=== PATIENT | male | born 1940 | race Caucasian/White ===

== ENCOUNTER 2022-03-14 08:57 | Inpatient (IN) | payer OTHER ==
[~2022-03-14] VITALS: Ht 180.3 cm; Wt 82.6 kg
[2022-03-14 09:20] VITALS: BP_SYST 191
[2022-03-14 09:55] LABS: ANION GAP 8 (5-15); CHLORIDE 104 mmol/L (98-107); CREATININE 1.83 mg/dL (0.55-1.30); GLUCOSE 132 mg/dL (70-99); POTASSIUM 3.9 mmol/L (3.5-5.1); SODIUM SERUM 137 mmol/L (136-145); UREA NITROGEN, BLOOD 28 mg/dL (8-21)
[2022-03-14 09:57] LABS: BASOPHILS % (AUTO) 0.7 % (0.0-2.0); EOSINOPHILS # (AUTO) 0.1 K/uL (0.0-0.4); EOSINOPHILS % (AUTO) 0.9 % (0.0-4.0); HEMATOCRIT 32.6 % (36-54); HEMOGLOBIN 11.2 g/dL (14.0-18.0); LYMPHOCYTES # (AUTO) 0.8 K/uL (1.0-5.5); LYMPHOCYTES % (AUTO) 13.7 % (20.5-51.5); MEAN CORPUSCULAR HEMOGLOBIN 32 pg (27-31); MEAN CORPUSCULAR HGB CONC 34 % (32-36); MEAN CORPUSCULAR VOLUME 93 fL (79.0-98.0); MONOCYTES # (AUTO) 0.7 K/uL (0.0-1.0); MONOCYTES % (AUTO) 11.1 % (1.7-9.3); NEUTROPHILS # (AUTO) 4.4 K/uL (1.8-7.7); NEUTROPHILS % (AUTO) 73.6 % (40.0-70.0); PLATELET COUNT (AUTO) 192 K/uL (130-430); RED BLOOD CELL COUNT(AUTO) 3.52 MIL/uL (4.2-6.2); RED CELL DISTRIBUTION WIDTH 12.7 % (9.0-15.0)
[2022-03-14 09:59] LABS: ALANINE AMINOTRANSFERASE 22 U/L (12-78); ALBUMIN 3.4 g/dL (3.4-4.8); ASPARTATE AMINOTRANSFERASE 31 U/L (10-37); TOTAL BILIRUBIN 0.4 mg/dL (0.0-1.0)
[2022-03-14] MEDS ORDERED: POTASSIUM CHLORIDE 20 MEQ TAB.PRT.SR PO PRN (12:15)
[2022-03-14] MEDS ORDERED: MAGNESIUM SULFATE 50 ML IV PRN (12:15)
[2022-03-14] MEDS ORDERED: ONDANSETRON HCL 4 MG/2 ML VIAL IVP PRN (12:15)
[2022-03-14] MEDS ORDERED: LORazepam 2 MG/ML VIAL IVP PRN (12:15)
[2022-03-14] MEDS ORDERED: MORPHINE 2 MG/ML INJ. SYRINGE IVP PRN ×2 (12:15)
[2022-03-14] MEDS ORDERED: MUPIROCIN 2% TOPICAL OINTMENT 22 GM NS PRN (12:15)
[2022-03-14] MEDS ORDERED: DOCUSATE SODIUM 100 MG CAPSULE PO PRN (12:15)
[2022-03-14] MEDS ORDERED: ZOLPIDEM TARTRATE 5 MG TABLET PO PRN (12:15)
[2022-03-14] MEDS ORDERED: LORazepam 1 MG TABLET PO PRN (12:30)
[2022-03-14] MEDS ORDERED: ACETAMINOPHEN 325 MG TABLET PO PRN (12:30)
[2022-03-14] MEDS ORDERED: amLODIPine BESYLATE 10 MG TABLET PO ONE (12:30)
[2022-03-14] MEDS ORDERED: PIOG30TA71 PO (12:50)
[2022-03-14] MEDS ORDERED: AMLO5TAB4 PO (12:50)
[2022-03-14] MEDS ORDERED: LINA5TAB2 PO (12:50)
[2022-03-14] MEDS ORDERED: SERT25TA PO (12:50)
[2022-03-14] MEDS ORDERED: LOSA25TA3 PO (12:50)
[2022-03-14] MEDS ORDERED: ROSU20TA2 PO (12:50)
[2022-03-14] MEDS ORDERED: FENO160 PO (12:50)
[2022-03-14] MEDS ORDERED: SYN75 PO (12:50)
[2022-03-14] MEDS: NACL 0.9% 1,000 ML IV SCH (14:26)
[2022-03-14 14:50] VITALS: BP_SYST 155
[2022-03-14 16:01] VITALS: BP_SYST 153
[2022-03-14 20:00] VITALS: BP_SYST 150
[2022-03-14] MEDS: ACETAMINOPHEN 325 MG TABLET PO PRN (21:05)
[2022-03-14] MEDS: HEPARIN SODIUM,PORCINE 5,000 UNITS/ML VIAL SUBCUT SCH (21:14)
[2022-03-15 01:06] VITALS: BP_SYST 136
[2022-03-15] MEDS: NACL 0.9% 1,000 ML IV SCH ×2 (01:36→13:15)
[2022-03-15 07:27] LABS: BASOPHILS % (AUTO) 0.4 % (0.0-2.0); EOSINOPHILS % (AUTO) 0.6 % (0.0-4.0); HEMATOCRIT 29.1 % (36-54); HEMOGLOBIN 10.1 g/dL (14.0-18.0); LYMPHOCYTES # (AUTO) 0.9 K/uL (1.0-5.5); LYMPHOCYTES % (AUTO) 13.2 % (20.5-51.5); MEAN CORPUSCULAR HEMOGLOBIN 32 pg (27-31); MEAN CORPUSCULAR HGB CONC 35 % (32-36); MEAN CORPUSCULAR VOLUME 92 fL (79.0-98.0); MONOCYTES # (AUTO) 0.8 K/uL (0.0-1.0); MONOCYTES % (AUTO) 11.6 % (1.7-9.3); NEUTROPHILS # (AUTO) 5.3 K/uL (1.8-7.7); NEUTROPHILS % (AUTO) 74.2 % (40.0-70.0); PLATELET COUNT (AUTO) 183 K/uL (130-430); RED BLOOD CELL COUNT(AUTO) 3.17 MIL/uL (4.2-6.2); RED CELL DISTRIBUTION WIDTH 12.8 % (9.0-15.0); WHITE BLOOD COUNT (AUTO) 7.1 K/uL (4.8-10.8)
[2022-03-15 08:00] VITALS: BP_SYST 152
[2022-03-15 08:03] LABS: ANION GAP 5 (5-15); CALCIUM 8.4 mg/dL (8.4-11.0); CHLORIDE 107 mmol/L (98-107); CREATININE 1.74 mg/dL (0.55-1.30); GLUCOSE 112 mg/dL (70-99); SODIUM SERUM 139 mmol/L (136-145); UREA NITROGEN, BLOOD 27 mg/dL (8-21)
[2022-03-15] MEDS ORDERED: DEXTROSE 50% JECT 50 ML DISP.SYRIN IVP PRN (08:30)
[2022-03-15] MEDS ORDERED: MUPIROCIN 2% TOPICAL OINTMENT 22 GM NS PRN (08:30)
[2022-03-15] MEDS ORDERED: NALOXONE HCL 0.4 MG/ML AMP (NARCAN) IVP PRN ×3 (08:30)
[2022-03-15] MEDS ORDERED: HYDROcodone/ACETAMIN 5-325 MG TAB (NORCO/ VICODIN) PO PRN (08:30)
[2022-03-15] MEDS ORDERED: POTASSIUM CHLORIDE 20 MEQ TAB.PRT.SR PO PRN (08:30)
[2022-03-15] MEDS ORDERED: MAGNESIUM SULFATE 50 ML IV PRN (08:30)
[2022-03-15] MEDS ORDERED: ZOLPIDEM TARTRATE 5 MG TABLET PO PRN (08:30)
[2022-03-15] MEDS ORDERED: LORazepam 2 MG/ML VIAL IVP PRN (08:30)
[2022-03-15] MEDS ORDERED: IBUPROFEN 400 MG TABLET PO ONE (08:30)
[2022-03-15] MEDS ORDERED: ACETAMINOPHEN 325 MG TABLET PO PRN (08:30)
[2022-03-15] MEDS ORDERED: DOCUSATE SODIUM 100 MG CAPSULE PO PRN (08:30)
[2022-03-15] MEDS ORDERED: ONDANSETRON HCL 4 MG/2 ML VIAL IVP PRN (08:30)
[2022-03-15] MEDS ORDERED: amLODIPine BESYLATE 5 MG TABLET PO ONE (09:00)
[2022-03-15] MEDS ORDERED: ATORVASTATIN 20 MG TABLET PO SCH (09:00)
[2022-03-15] MEDS: FENOFIBRATE 145 MG TABLET PO SCH (09:00)
[2022-03-15] MEDS ORDERED: SERTRALINE HCL 50 MG TABLET PO ONE (09:00)
[2022-03-15] MEDS ORDERED: amLODIPine BESYLATE 10 MG TABLET PO SCH (09:00)
[2022-03-15] MEDS ORDERED: LOSARTAN POTASSIUM 25 MG TABLET PO ONE (09:00)
[2022-03-15] MEDS: ATORVASTATIN 20 MG TABLET PO ONE ×2 (09:00→10:11)
[2022-03-15] MEDS: HEPARIN SODIUM,PORCINE 5,000 UNITS/ML VIAL SUBCUT SCH ×2 (10:15→20:12)
[2022-03-15] MEDS: INSULIN LISPRO SLIDING SCALE 100 UNITS/ML VIAL (humaLOG) SUBCUT PRN ×3 (10:22→20:23)
[2022-03-15 11:34] VITALS: BP_SYST 148
[2022-03-15 15:27] VITALS: BP_SYST 153
[2022-03-15 20:05] VITALS: BP_SYST 159
[2022-03-15] MEDS: ACETAMINOPHEN 325 MG TABLET PO PRN (20:08)
[2022-03-15 21:46] LABS: BILIRUBIN,URINE NEGATIVE (NEGATIVE); CLARITY/URINE CLEAR (CLEAR); COLOR,URINE YELLOW (YELLOW); GLUCOSE,URINE TRACE (NEGATIVE); KETONES,URINE NEGATIVE (NEGATIVE); LEUKOCYTE ESTERASE ,URINE NEGATIVE (NEGATIVE); NITRITE, URINE NEGATIVE (NEGATIVE); PH,URINE 5.5 (5.0-8.0); PROTEIN URINE TRACE (NEGATIVE); UROBILINOGEN,URINE 0.2 (0.2-1.0)
[2022-03-15 21:58] LABS: BLOOD, URINE TRACE (NEGATIVE)
[2022-03-15 22:00] LABS: BACTERIA,URINE None Seen /HPF (None Seen); MUCUS,URINE None Seen /LPF (None Seen); RBC,URINE 0-3 /HPF (0-3); WBC,URINE NONE SEEN /HPF (0-3)
[2022-03-16] VITALS: BP_SYST 137
[2022-03-16] MEDS: NACL 0.9% 1,000 ML IV SCH ×2 (00:41→11:59)
[2022-03-16] MEDS: LEVOTHYROXINE SODIUM 0.075 MG TABLET PO SCH (06:33)
[2022-03-16 07:38] LABS: ANION GAP 8 (5-15); CALCIUM 8.5 mg/dL (8.4-11.0); CHLORIDE 105 mmol/L (98-107); CREATININE 1.48 mg/dL (0.55-1.30); GLUCOSE 112 mg/dL (70-99); SODIUM SERUM 138 mmol/L (136-145); UREA NITROGEN, BLOOD 21 mg/dL (8-21)
[2022-03-16 08:00] VITALS: BP_SYST 162
[2022-03-16] MEDS: ACETAMINOPHEN 325 MG TABLET PO PRN (08:45)
[2022-03-16] MEDS: ATORVASTATIN 20 MG TABLET PO SCH (08:47)
[2022-03-16] MEDS: SERTRALINE HCL 50 MG TABLET PO SCH (08:48)
[2022-03-16] MEDS: LOSARTAN POTASSIUM 25 MG TABLET PO SCH (08:48)
[2022-03-16] MEDS: amLODIPine BESYLATE 5 MG TABLET PO SCH (08:52)
[2022-03-16] MEDS: HEPARIN SODIUM,PORCINE 5,000 UNITS/ML VIAL SUBCUT SCH ×2 (08:56→21:22)
[2022-03-16] MEDS: FENOFIBRATE 145 MG TABLET PO SCH (09:00)
[2022-03-16 09:14] LABS: TRIGLYCERIDES 228 mg/dL (30-150)
[2022-03-16 09:15] LABS: CHOLESTEROL 146 mg/dL (<200); HDL CHOLESTEROL 35 mg/dL (>45); LDL CHOLESTEROL 67 mg/dL (<100)
[2022-03-16 12:00] VITALS: BP_SYST 159
[2022-03-16 12:06] LABS: BASOPHILS # (AUTO) 0.1 K/uL (0.0-0.2); BASOPHILS % (AUTO) 0.9 % (0.0-2.0); EOSINOPHILS # (AUTO) 0.1 K/uL (0.0-0.4); EOSINOPHILS % (AUTO) 1.4 % (0.0-4.0); HEMATOCRIT 31.6 % (36-54); HEMOGLOBIN 10.5 g/dL (14.0-18.0); LYMPHOCYTES # (AUTO) 0.9 K/uL (1.0-5.5); LYMPHOCYTES % (AUTO) 14.6 % (20.5-51.5); MEAN CORPUSCULAR HEMOGLOBIN 31 pg (27-31); MEAN CORPUSCULAR HGB CONC 33 % (32-36); MEAN CORPUSCULAR VOLUME 93 fL (79.0-98.0); MONOCYTES # (AUTO) 0.7 K/uL (0.0-1.0); MONOCYTES % (AUTO) 12.2 % (1.7-9.3); NEUTROPHILS # (AUTO) 4.3 K/uL (1.8-7.7); NEUTROPHILS % (AUTO) 70.9 % (40.0-70.0); PLATELET COUNT (AUTO) 177 K/uL (130-430); RED CELL DISTRIBUTION WIDTH 12.8 % (9.0-15.0); WHITE BLOOD COUNT (AUTO) 6.1 K/uL (4.8-10.8)
[2022-03-16 16:00] VITALS: BP_SYST 166
[2022-03-17] MEDS: NACL 0.9% 1,000 ML IV SCH ×2 (00:16→11:50)
[2022-03-17 00:27] VITALS: BP_SYST 143
[2022-03-17] MEDS: LEVOTHYROXINE SODIUM 0.075 MG TABLET PO SCH (06:25)
[2022-03-17] MEDS: ACETAMINOPHEN 325 MG TABLET PO PRN (06:27)
[2022-03-17 08:00] VITALS: BP_SYST 151
[2022-03-17] MEDS: SERTRALINE HCL 50 MG TABLET PO SCH (08:13)
[2022-03-17] MEDS: ATORVASTATIN 20 MG TABLET PO SCH (08:13)
[2022-03-17] MEDS: LOSARTAN POTASSIUM 25 MG TABLET PO SCH (08:13)
[2022-03-17] MEDS: amLODIPine BESYLATE 5 MG TABLET PO SCH (08:14)
[2022-03-17 08:19] LABS: ANION GAP 10 (5-15); CALCIUM 8.9 mg/dL (8.4-11.0); CHLORIDE 105 mmol/L (98-107); CREATININE 1.39 mg/dL (0.55-1.30); GLUCOSE 95 mg/dL (70-99); POTASSIUM 3.9 mmol/L (3.5-5.1); SODIUM SERUM 138 mmol/L (136-145); UREA NITROGEN, BLOOD 21 mg/dL (8-21)
[2022-03-17] MEDS: HEPARIN SODIUM,PORCINE 5,000 UNITS/ML VIAL SUBCUT SCH ×2 (08:19→21:14)
[2022-03-17] MEDS: FENOFIBRATE 145 MG TABLET PO SCH (08:20)
[2022-03-17 12:00] VITALS: BP_SYST 158
[2022-03-17 14:40] LABS: BASOPHILS % (AUTO) 0.6 % (0.0-2.0); EOSINOPHILS # (AUTO) 0.1 K/uL (0.0-0.4); EOSINOPHILS % (AUTO) 1.5 % (0.0-4.0); HEMATOCRIT 33.6 % (36-54); HEMOGLOBIN 11.2 g/dL (14.0-18.0); LYMPHOCYTES # (AUTO) 0.9 K/uL (1.0-5.5); LYMPHOCYTES % (AUTO) 14.1 % (20.5-51.5); MEAN CORPUSCULAR HEMOGLOBIN 31 pg (27-31); MEAN CORPUSCULAR HGB CONC 33 % (32-36); MEAN CORPUSCULAR VOLUME 94 fL (79.0-98.0); MONOCYTES # (AUTO) 0.6 K/uL (0.0-1.0); MONOCYTES % (AUTO) 10.1 % (1.7-9.3); NEUTROPHILS # (AUTO) 4.7 K/uL (1.8-7.7); NEUTROPHILS % (AUTO) 73.7 % (40.0-70.0); PLATELET COUNT (AUTO) 183 K/uL (130-430); RED BLOOD CELL COUNT(AUTO) 3.56 MIL/uL (4.2-6.2); RED CELL DISTRIBUTION WIDTH 13.1 % (9.0-15.0); WHITE BLOOD COUNT (AUTO) 6.4 K/uL (4.8-10.8)
[2022-03-17 16:00] VITALS: BP_SYST 170
[2022-03-17 20:00] VITALS: BP_SYST 134
[2022-03-18] MEDS: NACL 0.9% 1,000 ML IV SCH ×2 (03:45→11:50)
[2022-03-18 04:00] VITALS: BP_SYST 146
[2022-03-18 06:40] LABS: BASOPHILS % (AUTO) 0.8 % (0.0-2.0); EOSINOPHILS # (AUTO) 0.1 K/uL (0.0-0.4); EOSINOPHILS % (AUTO) 2.6 % (0.0-4.0); HEMATOCRIT 27.3 % (36-54); HEMOGLOBIN 9.4 g/dL (14.0-18.0); LYMPHOCYTES # (AUTO) 1.2 K/uL (1.0-5.5); MEAN CORPUSCULAR HEMOGLOBIN 32 pg (27-31); MEAN CORPUSCULAR HGB CONC 35 % (32-36); MEAN CORPUSCULAR VOLUME 92 fL (79.0-98.0); MONOCYTES # (AUTO) 0.6 K/uL (0.0-1.0); MONOCYTES % (AUTO) 13.2 % (1.7-9.3); NEUTROPHILS # (AUTO) 2.7 K/uL (1.8-7.7); NEUTROPHILS % (AUTO) 58.4 % (40.0-70.0); PLATELET COUNT (AUTO) 227 K/uL (130-430); RED BLOOD CELL COUNT(AUTO) 2.95 MIL/uL (4.2-6.2); RED CELL DISTRIBUTION WIDTH 12.6 % (9.0-15.0); WHITE BLOOD COUNT (AUTO) 4.7 K/uL (4.8-10.8)
[2022-03-18] MEDS: LEVOTHYROXINE SODIUM 0.075 MG TABLET PO SCH (07:57)
[2022-03-18 08:36] LABS: ANION GAP 6 (5-15); CALCIUM 8.4 mg/dL (8.4-11.0); CHLORIDE 107 mmol/L (98-107); CREATININE 1.31 mg/dL (0.55-1.30); GLUCOSE 92 mg/dL (70-99); POTASSIUM 3.8 mmol/L (3.5-5.1); SODIUM SERUM 140 mmol/L (136-145); UREA NITROGEN, BLOOD 17 mg/dL (8-21)
[2022-03-18 08:55] VITALS: BP_SYST 161
[2022-03-18] MEDS: FENOFIBRATE 145 MG TABLET PO SCH (09:00)
[2022-03-18] MEDS: ACETAMINOPHEN 325 MG TABLET PO PRN (09:46)
[2022-03-18] MEDS: amLODIPine BESYLATE 5 MG TABLET PO SCH (09:46)
[2022-03-18] MEDS: LOSARTAN POTASSIUM 25 MG TABLET PO SCH (09:47)
[2022-03-18] MEDS: ATORVASTATIN 20 MG TABLET PO SCH ×2 (09:48→09:57)
[2022-03-18] MEDS: SERTRALINE HCL 50 MG TABLET PO SCH (09:48)
[2022-03-18] MEDS: HEPARIN SODIUM,PORCINE 5,000 UNITS/ML VIAL SUBCUT SCH ×2 (09:50→21:33)
[2022-03-18 12:05] VITALS: BP_SYST 159; BP_SYST 161
[2022-03-18] MEDS ORDERED: hydrALAZINE HCL 20 MG/ML VIAL IVP PRN (12:15)
[2022-03-18 16:12] VITALS: BP_SYST 158
[2022-03-18 20:00] VITALS: BP_SYST 156
[2022-03-18] MEDS: INSULIN LISPRO SLIDING SCALE 100 UNITS/ML VIAL (humaLOG) SUBCUT PRN ×2 (21:58→22:20)
[2022-03-19] VITALS: BP_SYST 150
[2022-03-19 04:00] VITALS: BP_SYST 118
[2022-03-19] MEDS: LEVOTHYROXINE SODIUM 0.075 MG TABLET PO SCH (06:22)
[2022-03-19] MEDS: NACL 0.9% 1,000 ML IV SCH ×2 (06:25→15:56)
[2022-03-19 06:57] LABS: BASOPHILS % (AUTO) 0.7 % (0.0-2.0); EOSINOPHILS # (AUTO) 0.2 K/uL (0.0-0.4); HEMATOCRIT 29.6 % (36-54); HEMOGLOBIN 10.2 g/dL (14.0-18.0); LYMPHOCYTES # (AUTO) 1.3 K/uL (1.0-5.5); LYMPHOCYTES % (AUTO) 26.6 % (20.5-51.5); MEAN CORPUSCULAR HEMOGLOBIN 32 pg (27-31); MEAN CORPUSCULAR HGB CONC 34 % (32-36); MEAN CORPUSCULAR VOLUME 92 fL (79.0-98.0); MONOCYTES # (AUTO) 0.7 K/uL (0.0-1.0); MONOCYTES % (AUTO) 13.1 % (1.7-9.3); NEUTROPHILS # (AUTO) 2.8 K/uL (1.8-7.7); NEUTROPHILS % (AUTO) 56.6 % (40.0-70.0); PLATELET COUNT (AUTO) 195 K/uL (130-430); RED BLOOD CELL COUNT(AUTO) 3.22 MIL/uL (4.2-6.2); RED CELL DISTRIBUTION WIDTH 12.3 % (9.0-15.0)
[2022-03-19 07:34] LABS: ANION GAP 5 (5-15); CALCIUM 8.7 mg/dL (8.4-11.0); CHLORIDE 108 mmol/L (98-107); CREATININE 1.24 mg/dL (0.55-1.30); GLUCOSE 93 mg/dL (70-99); POTASSIUM 3.6 mmol/L (3.5-5.1); SODIUM SERUM 140 mmol/L (136-145); UREA NITROGEN, BLOOD 16 mg/dL (8-21)
[2022-03-19 08:00] VITALS: BP_SYST 164
[2022-03-19] MEDS: ATORVASTATIN 20 MG TABLET PO SCH (08:54)
[2022-03-19] MEDS: SERTRALINE HCL 50 MG TABLET PO SCH (08:55)
[2022-03-19] MEDS: LOSARTAN POTASSIUM 25 MG TABLET PO SCH (08:55)
[2022-03-19] MEDS: amLODIPine BESYLATE 5 MG TABLET PO SCH (08:56)
[2022-03-19] MEDS: FENOFIBRATE 145 MG TABLET PO SCH (08:56)
[2022-03-19] MEDS: HEPARIN SODIUM,PORCINE 5,000 UNITS/ML VIAL SUBCUT SCH (09:01)
[2022-03-19 11:28] VITALS: BP_SYST 156
[2022-03-19] MEDS ORDERED: GADOTERATE MEGLUMINE 7.5 MMOL/15 ML VIAL IV ONE (12:18)
[2022-03-19] MEDS: ACETAMINOPHEN 325 MG TABLET PO PRN (13:43)
[2022-03-19 15:30] VITALS: BP_SYST 178
[2022-03-19 20:00] VITALS: BP_SYST 154
[2022-03-20] MEDS: HEPARIN SODIUM,PORCINE 5,000 UNITS/ML VIAL SUBCUT SCH ×2 (01:40→09:24)
[2022-03-20] MEDS: ACETAMINOPHEN 325 MG TABLET PO PRN (01:45)
[2022-03-20 04:00] VITALS: BP_SYST 119
[2022-03-20] MEDS: NACL 0.9% 1,000 ML IV SCH (05:45)
[2022-03-20 08:00] VITALS: BP_SYST 185
[2022-03-20] MEDS: LEVOTHYROXINE SODIUM 0.075 MG TABLET PO SCH (08:24)
[2022-03-20] MEDS: FENOFIBRATE 145 MG TABLET PO SCH (09:00)
[2022-03-20] MEDS: ATORVASTATIN 20 MG TABLET PO SCH (09:00)
[2022-03-20] MEDS: SERTRALINE HCL 50 MG TABLET PO SCH (09:17)
[2022-03-20] MEDS: amLODIPine BESYLATE 5 MG TABLET PO SCH (09:18)
[2022-03-20] MEDS: LOSARTAN POTASSIUM 25 MG TABLET PO SCH (09:18)
[2022-03-20 11:57] VITALS: BP_SYST 146
[2022-03-20 12:04] VITALS: BP_SYST 146
== END 2022-03-20 12:45 | disposition home or self-care (01) | DRG 843 ==
LOC: SED 08:57 → STU 12:18 → SMU 03-18 00:09
PROVIDERS: ADMIT General Practice; ATTEND General Practice
PROC: 4A00X4Z Measurement of Central Nervous Electrical Activity, External Approach (ICD-10-PCS; principal; 2022-03-16)
DX: D36.9 Benign neoplasm, unspecified site (principal); N17.0 Acute kidney failure with tubular necrosis; G90.8 Other disorders of autonomic nervous system; E11.43 Type 2 diabetes mellitus with diabetic autonomic (poly)neuropathy; E03.9 Hypothyroidism, unspecified; F32.A Depression, unspecified; I12.9 Hypertensive chronic kidney disease with stage 1 through stage 4 chronic kidney disease, or unspecified chronic kidney disease; E11.22 Type 2 diabetes mellitus with diabetic chronic kidney disease; N18.30 Chronic kidney disease, stage 3 unspecified; E78.5 Hyperlipidemia, unspecified; I35.0 Nonrheumatic aortic (valve) stenosis; Z20.822 Contact with and (suspected) exposure to COVID-19
CPT/HCPCS: 36415; 70450-TC; 70553; 71045; 72125-TC; 76376; 76770; 80048; 80053; 80061; 81000; 82550; 82962; 83036; 83605; 83735; 83880; 84443; 84484; 85025; 93005; 93306; 93880; 95816; 97110-GP; 97112-GP; 97116-GP; 97530-GP; 99285; A9575; G0378; J0360; J1644

== ENCOUNTER 2023-10-15 15:58 | Inpatient (IN) | payer OTHER ==
[~2023-10-15] VITALS: Ht 177.8 cm; Wt 93.0 kg
[~2023-10-15 15:58] MED LIST: AMLO5TAB4 PO; FENO160 PO; LINA5TAB2 PO; LOSA-412 PO; PIOG30TA71 PO; ROSU20TA2 PO; SERT25TA PO; SYN75 PO
[2023-10-15 16:10] VITALS: BP_SYST 182; PULSE 88; RESP 18; TEMP 98.3; O2SAT 98
[2023-10-15] MEDS: NACL 0.9% 1,000 ML IV ONE (16:15)
[2023-10-15 17:22] LABS: BILIRUBIN,URINE NEGATIVE (NEGATIVE); BLOOD, URINE 3+ (NEGATIVE); COLOR,URINE YELLOW (YELLOW); GLUCOSE,URINE NEGATIVE (NEGATIVE); KETONES,URINE NEGATIVE (NEGATIVE); LEUKOCYTE ESTERASE ,URINE NEGATIVE (NEGATIVE); NITRITE, URINE NEGATIVE (NEGATIVE); PH,URINE 5.5 (5.0-8.0); PROTEIN URINE 2+ (NEGATIVE); UROBILINOGEN,URINE 0.2 (0.2-1.0)
[2023-10-15 17:23] LABS: CLARITY/URINE SLIGHTLY CLOUDY (CLEAR)
[2023-10-15 17:33] LABS: BACTERIA,URINE FEW /HPF (None Seen); HYALINE CASTS, URINE 0-10 /LPF (None Seen); WBC,URINE 0-3 /HPF (0-3)
[2023-10-15 17:37] LABS: BASOPHILS % (AUTO) 0.4 % (0.0-2.0); HEMATOCRIT 24.5 % (36-54); HEMOGLOBIN 8.3 g/dL (14.0-18.0); LYMPHOCYTES # (AUTO) 0.7 K/uL (1.0-5.5); LYMPHOCYTES % (AUTO) 5.6 % (20.5-51.5); MEAN CORPUSCULAR HEMOGLOBIN 32 pg (27-31); MEAN CORPUSCULAR HGB CONC 34 % (32-36); MEAN CORPUSCULAR VOLUME 93 fL (79.0-98.0); MONOCYTES # (AUTO) 1.2 K/uL (0.0-1.0); MONOCYTES % (AUTO) 9.8 % (1.7-9.3); NEUTROPHILS # (AUTO) 10.7 K/uL (1.8-7.7); NEUTROPHILS % (AUTO) 84.2 % (40.0-70.0); PLATELET COUNT (AUTO) 174 K/uL (130-430); RED BLOOD CELL COUNT(AUTO) 2.62 MIL/uL (4.2-6.2); RED CELL DISTRIBUTION WIDTH 12.8 % (9.0-15.0); WHITE BLOOD COUNT (AUTO) 12.7 K/uL (4.8-10.8)
[2023-10-15 17:46] LABS: INR 1.1 (0.80-1.20); PROTHROMBIN TIME 11.7 SECS (9.5-12.5)
[2023-10-15 18:00] LABS: ALANINE AMINOTRANSFERASE 55 U/L (12-78); ANION GAP 10 (5-15); ASPARTATE AMINOTRANSFERASE 81 U/L (10-37); CALCIUM 8.7 mg/dL (8.4-11.0); CARBON DIOXIDE 23 mmol/L (23-29); CHLORIDE 103 mmol/L (98-107); CREATININE 2.67 mg/dL (0.55-1.30); GLUCOSE 157 mg/dL (74-106); POTASSIUM 4.2 mmol/L (3.5-5.1); SODIUM SERUM 136 mmol/L (136-145); TOTAL BILIRUBIN 0.5 mg/dL (0.0-1.0); TOTAL PROTEIN, SERUM 6.9 g/dL (6.4-8.3); UREA NITROGEN, BLOOD 56 mg/dL (8-21)
[2023-10-15 18:11] LABS: BILIRUBIN,DIRECT 0.3 mg/dL (0.0-0.3)
[2023-10-15] MEDS: ASPIRIN 325 MG TABLET PO ONE (19:11)
[2023-10-15] MEDS: ACETAMINOPHEN 650 MG/20.3 ML UDC PO PRN (21:00)
[2023-10-15 22:45] VITALS: BP_SYST 93; PULSE 63; RESP 18; TEMP 98.1; O2SAT 95
[2023-10-16 00:30] VITALS: BP_SYST 117; PULSE 60; RESP 16; TEMP 97.3; O2SAT 97
[2023-10-16 04:30] VITALS: BP_SYST 158; PULSE 97; RESP 18; TEMP 99.4; O2SAT 93
[2023-10-16] MEDS: LEVOTHYROXINE SODIUM 0.075 MG TABLET PO SCH (06:25)
[2023-10-16 08:26] VITALS: O2SAT 94
[2023-10-16 08:32] VITALS: BP_SYST 145; PULSE 93; RESP 18; TEMP 99.8; O2SAT 94
[2023-10-16] MEDS ORDERED: LOSARTAN POTASSIUM 25 MG TABLET PO SCH (09:00)
[2023-10-16] MEDS ORDERED: PIOGLITAZONE HCL 30 MG PO SCH (09:00)
[2023-10-16] MEDS ORDERED: ROSUVASTATIN CALCIUM 5 MG/TAB (CRESTOR) PO SCH (09:00)
[2023-10-16] MEDS: SERTRALINE HCL 50 MG TABLET PO SCH (09:18)
[2023-10-16] MEDS: FENOFIBRATE 160 MG TABLET PO SCH (09:18)
[2023-10-16] MEDS: PIOGLITAZONE HCL 15 MG TABLET PO SCH (09:19)
[2023-10-16] MEDS: ATORVASTATIN 20 MG TABLET PO SCH (09:20)
[2023-10-16] MEDS: amLODIPine BESYLATE 5 MG TABLET PO SCH (09:20)
[2023-10-16] MEDS: NACL 0.9% 1,000 ML IV SCH (09:51)
[2023-10-16] MEDS ORDERED: HYDROcodone/ACETAMIN 10-325 MG TAB PO PRN (10:15)
[2023-10-16] MEDS ORDERED: ACETAMINOPHEN 325 MG TABLET PO PRN (10:15)
[2023-10-16] MEDS ORDERED: NALOXONE HCL 0.4 MG/ML AMP (NARCAN) IVP PRN ×2 (10:15)
[2023-10-16] MEDS ORDERED: LORazepam 2 MG/ML VIAL IVP PRN (10:15)
[2023-10-16] MEDS ORDERED: HYDROcodone/ACETAMIN 5-325 MG TAB (NORCO/ VICODIN) PO PRN (10:15)
[2023-10-16 11:30] VITALS: BP_SYST 137; PULSE 97; RESP 20; TEMP 101.7; O2SAT 96
[2023-10-16] MEDS: cefTRIAXone 1 GM IVPB PREMIX 50 ML IV ONE (12:34)
[2023-10-16 13:06] LABS: BASOPHILS % (AUTO) 0.3 % (0.0-2.0); HEMATOCRIT 24.9 % (36-54); HEMOGLOBIN 8.5 g/dL (14.0-18.0); LYMPHOCYTES # (AUTO) 0.7 K/uL (1.0-5.5); LYMPHOCYTES % (AUTO) 7.6 % (20.5-51.5); MEAN CORPUSCULAR HEMOGLOBIN 32 pg (27-31); MEAN CORPUSCULAR HGB CONC 34 % (32-36); MEAN CORPUSCULAR VOLUME 94 fL (79.0-98.0); MONOCYTES # (AUTO) 0.5 K/uL (0.0-1.0); MONOCYTES % (AUTO) 6.2 % (1.7-9.3); NEUTROPHILS # (AUTO) 7.4 K/uL (1.8-7.7); NEUTROPHILS % (AUTO) 85.9 % (40.0-70.0); PLATELET COUNT (AUTO) 186 K/uL (130-430); RED BLOOD CELL COUNT(AUTO) 2.64 MIL/uL (4.2-6.2); RED CELL DISTRIBUTION WIDTH 12.7 % (9.0-15.0); WHITE BLOOD COUNT (AUTO) 8.6 K/uL (4.8-10.8)
[2023-10-16 13:18] LABS: ANION GAP 9 (5-15); CALCIUM 8.1 mg/dL (8.4-11.0); CARBON DIOXIDE 22 mmol/L (23-29); CHLORIDE 102 mmol/L (98-107); CREATININE 2.55 mg/dL (0.55-1.30); GLUCOSE 172 mg/dL (74-106); POTASSIUM 3.8 mmol/L (3.5-5.1); SODIUM SERUM 133 mmol/L (136-145); UREA NITROGEN, BLOOD 60 mg/dL (8-21)
[2023-10-16] MEDS: *HEPARIN PER PHARMACY XX ONE (14:15)
[2023-10-16] MEDS ORDERED: HEPARIN 25,000 UNITS/D5W 250ML 250 ML IV PRN (14:15)
[2023-10-16] MEDS ORDERED: HEPARIN SODIUM,PORCINE 3000 UNITS/0.6 ML BOLUS IVP PRN (14:30)
[2023-10-16] MEDS ORDERED: HEPARIN SODIUM,PORCINE 2000 UNITS/0.4 ML BOLUS IVP PRN (14:30)
[2023-10-16] MEDS ORDERED: LOSA50TA28 PO (15:07)
[2023-10-16] MEDS ORDERED: FENO145T PO (15:15)
[2023-10-16] MEDS: HEPARIN 25,000 UNITS in 250 ML PREMIX IV PRN (15:36)
[2023-10-16] MEDS: HEPARIN SODIUM,PORCINE 5,000 UNITS/ML VIAL IVP ONE (15:41)
[2023-10-16 16:00] VITALS: BP_SYST 144; PULSE 86; RESP 21; TEMP 99.7; O2SAT 95
[2023-10-16] MEDS: INSULIN REGULAR, HUMAN 100 UNITS/ML, 3 ML VIAL (humuLIN R) SUBCUT PRN (22:35)
[2023-10-17 05:48] LABS: BASOPHILS % (AUTO) 0.4 % (0.0-2.0); HEMATOCRIT 23.2 % (36-54); HEMOGLOBIN 7.9 g/dL (14.0-18.0); LYMPHOCYTES # (AUTO) 0.7 K/uL (1.0-5.5); LYMPHOCYTES % (AUTO) 7.7 % (20.5-51.5); MEAN CORPUSCULAR HEMOGLOBIN 32 pg (27-31); MEAN CORPUSCULAR HGB CONC 34 % (32-36); MEAN CORPUSCULAR VOLUME 94 fL (79.0-98.0); MONOCYTES # (AUTO) 0.4 K/uL (0.0-1.0); MONOCYTES % (AUTO) 4.6 % (1.7-9.3); NEUTROPHILS # (AUTO) 8.3 K/uL (1.8-7.7); NEUTROPHILS % (AUTO) 87.3 % (40.0-70.0); PLATELET COUNT (AUTO) 196 K/uL (130-430); RED BLOOD CELL COUNT(AUTO) 2.48 MIL/uL (4.2-6.2); WHITE BLOOD COUNT (AUTO) 9.5 K/uL (4.8-10.8)
[2023-10-17 06:43] LABS: ALANINE AMINOTRANSFERASE 94 U/L (12-78); ALBUMIN 2.4 g/dL (3.4-4.8); ANION GAP 12 (5-15); ASPARTATE AMINOTRANSFERASE 173 U/L (10-37); CALCIUM 8.2 mg/dL (8.4-11.0); CARBON DIOXIDE 21 mmol/L (23-29); CHLORIDE 103 mmol/L (98-107); CREATINE KINASE, TOTAL 2466 U/L (39-308); CREATININE 2.25 mg/dL (0.55-1.30); GLUCOSE 147 mg/dL (74-106); PHOSPHORUS 2.6 mg/dL (2.7-4.5); POTASSIUM 3.8 mmol/L (3.5-5.1); SODIUM SERUM 136 mmol/L (136-145); TOTAL BILIRUBIN 0.3 mg/dL (0.0-1.0); TOTAL PROTEIN, SERUM 6.3 g/dL (6.4-8.3); UREA NITROGEN, BLOOD 61 mg/dL (8-21)
[2023-10-17 07:04] LABS: CKMB RELATIVE INDEX 0.4 (0.0-2.9); CREATINE KINASE MB 10.2 ng/mL (0-3.6)
[2023-10-17 08:09] VITALS: BP_SYST 134; PULSE 89; RESP 19; TEMP 98
[2023-10-17] MEDS: cefTRIAXone 1 GM IVPB PREMIX 50 ML IV SCH (09:37)
[2023-10-17] MEDS ORDERED: CALCIUM GLUCONATE 2 GM in NS 100 ML IV ONE (11:00)
[2023-10-17] MEDS ORDERED: FENOFIBRATE 160 MG TABLET PO SCH (11:01)
[2023-10-17 11:03] LABS: URINE SODIUM, RANDOM 35 mmol/L (40-220)
[2023-10-17] MEDS: DOCUSATE SODIUM 100 MG CAPSULE PO ONE (11:27)
[2023-10-17] MEDS: CALCIUM GLUC 2 GM/100ML-NACL 100 ML IV ONE (11:27)
[2023-10-17] MEDS: POLYETHYLENE GLYCOL 3350, 17 GM/ POWD.PACK PO ONE (11:27)
[2023-10-17] MEDS: MINERAL OIL 133 ML ENEMA RC ONE (11:27)
[2023-10-17 12:00] VITALS: BP_SYST 139; PULSE 91; RESP 18; TEMP 98.7; O2SAT 93
[2023-10-17] MEDS: NA PHOS 15 MM in NS 250 ML IV ONE (12:35)
[2023-10-17 16:00] VITALS: BP_SYST 135; PULSE 95; RESP 19; TEMP 98.5; O2SAT 94
[2023-10-17 20:00] VITALS: BP_SYST 134; PULSE 91; RESP 18; TEMP 99.7; O2SAT 95
[2023-10-17] MEDS: DOCUSATE SODIUM 100 MG CAPSULE PO SCH (22:09)
[2023-10-17] MEDS: DOXYCYCLINE HYCLATE 100 MG CAPSULE PO SCH (22:10)
[2023-10-18 01:05] VITALS: BP_SYST 128; PULSE 87; RESP 18; TEMP 100; O2SAT 95
[2023-10-18 05:31] LABS: BASOPHILS % (AUTO) 0.3 % (0.0-2.0); LYMPHOCYTES # (AUTO) 1.1 K/uL (1.0-5.5); LYMPHOCYTES % (AUTO) 11.2 % (20.5-51.5); MEAN CORPUSCULAR HEMOGLOBIN 32 pg (27-31); MEAN CORPUSCULAR HGB CONC 34 % (32-36); MEAN CORPUSCULAR VOLUME 94 fL (79.0-98.0); MONOCYTES # (AUTO) 0.3 K/uL (0.0-1.0); MONOCYTES % (AUTO) 2.7 % (1.7-9.3); NEUTROPHILS # (AUTO) 8.5 K/uL (1.8-7.7); NEUTROPHILS % (AUTO) 85.8 % (40.0-70.0); PLATELET COUNT (AUTO) 205 K/uL (130-430); RED BLOOD CELL COUNT(AUTO) 2.12 MIL/uL (4.2-6.2); WHITE BLOOD COUNT (AUTO) 9.9 K/uL (4.8-10.8)
[2023-10-18 06:05] LABS: ERYTHROCYTE SEDIMENTATION RATE 30 MM/HR (0-15)
[2023-10-18 06:10] LABS: ANION GAP 11 (5-15); CALCIUM 8.1 mg/dL (8.4-11.0); CARBON DIOXIDE 20 mmol/L (23-29); CHLORIDE 106 mmol/L (98-107); CREATININE 2.28 mg/dL (0.55-1.30); GLUCOSE 159 mg/dL (74-106); PHOSPHORUS 3.7 mg/dL (2.7-4.5); POTASSIUM 3.2 mmol/L (3.5-5.1); SODIUM SERUM 137 mmol/L (136-145); UREA NITROGEN, BLOOD 60 mg/dL (8-21)
[2023-10-18 06:17] LABS: HEMOGLOBIN 6.9 g/dL (14.0-18.0)
[2023-10-18 08:00] VITALS: BP_SYST 113; PULSE 73; RESP 17; TEMP 98.8; O2SAT 95
[2023-10-18] MEDS: FENOFIBRATE 145MG TABLET PO SCH (09:00)
[2023-10-18] MEDS ORDERED: FENOFIBRATE 145MG TABLET PO SCH (09:00)
[2023-10-18] MEDS: POLYETHYLENE GLYCOL 3350, 17 GM/ POWD.PACK PO SCH (09:53)
[2023-10-18 12:18] VITALS: BP_SYST 119; PULSE 78; RESP 18; TEMP 98.2; O2SAT 93
[2023-10-18] MEDS: PANTOPRAZOLE SODIUM 40 MG TAB PO ONE (14:30)
[2023-10-18] MEDS: POTASSIUM CHLORIDE 20 MEQ TABLET.ER PO ONE (14:31)
[2023-10-18 15:11] LABS: CKMB RELATIVE INDEX 0.4 (0.0-2.9); CREATINE KINASE MB 5.1 ng/mL (0-3.6)
[2023-10-18 17:30] VITALS: BP_SYST 100; PULSE 82; RESP 17; TEMP 99.8; O2SAT 97
[2023-10-18 20:10] VITALS: BP_SYST 140; PULSE 79; RESP 18; TEMP 98.6; O2SAT 99
[2023-10-18 20:15] VITALS: O2SAT 93
[2023-10-19 00:09] VITALS: BP_SYST 112; PULSE 67; RESP 18; TEMP 97; O2SAT 97
[2023-10-19 06:55] LABS: BASOPHILS % (AUTO) 0.3 % (0.0-2.0); EOSINOPHILS % (AUTO) 0.5 % (0.0-4.0); HEMATOCRIT 23.6 % (36-54); HEMOGLOBIN 8.1 g/dL (14.0-18.0); LYMPHOCYTES # (AUTO) 0.8 K/uL (1.0-5.5); LYMPHOCYTES % (AUTO) 9.8 % (20.5-51.5); MEAN CORPUSCULAR HEMOGLOBIN 32 pg (27-31); MEAN CORPUSCULAR HGB CONC 34 % (32-36); MEAN CORPUSCULAR VOLUME 94 fL (79.0-98.0); MONOCYTES # (AUTO) 0.4 K/uL (0.0-1.0); MONOCYTES % (AUTO) 4.8 % (1.7-9.3); NEUTROPHILS # (AUTO) 7.3 K/uL (1.8-7.7); NEUTROPHILS % (AUTO) 84.6 % (40.0-70.0); PLATELET COUNT (AUTO) 203 K/uL (130-430); RED BLOOD CELL COUNT(AUTO) 2.51 MIL/uL (4.2-6.2); RED CELL DISTRIBUTION WIDTH 13.3 % (9.0-15.0); RETICULOCYTE COUNT 0.8 % (0.5-1.5); WHITE BLOOD COUNT (AUTO) 8.6 K/uL (4.8-10.8)
[2023-10-19 07:36] LABS: ERYTHROCYTE SEDIMENTATION RATE 36 MM/HR (0-15)
[2023-10-19 08:01] LABS: ALANINE AMINOTRANSFERASE 105 U/L (12-78); ALBUMIN 1.8 g/dL (3.4-4.8); ANION GAP 12 (5-15); ASPARTATE AMINOTRANSFERASE 166 U/L (10-37); CALCIUM 7.6 mg/dL (8.4-11.0); CARBON DIOXIDE 19 mmol/L (23-29); CHLORIDE 106 mmol/L (98-107); CREATININE 2.44 mg/dL (0.55-1.30); GLUCOSE 113 mg/dL (74-106); PHOSPHORUS 2.9 mg/dL (2.7-4.5); SODIUM SERUM 137 mmol/L (136-145); TOTAL BILIRUBIN 0.2 mg/dL (0.0-1.0); TOTAL PROTEIN, SERUM 5.4 g/dL (6.4-8.3); UREA NITROGEN, BLOOD 68 mg/dL (8-21)
[2023-10-19 08:07] VITALS: BP_SYST 123; PULSE 69; RESP 18; TEMP 97.3; O2SAT 94
[2023-10-19 08:09] VITALS: O2SAT 93
[2023-10-19 08:25] LABS: TOTAL IRON BIND. CAPACITY 139 ug/dL (250-450)
[2023-10-19] MEDS: PANTOPRAZOLE SODIUM 40 MG TAB PO SCH (08:52)
[2023-10-19 11:03] VITALS: BP_SYST 120; PULSE 70; RESP 16; TEMP 97.4; O2SAT 93
[2023-10-19 14:59] LABS: CKMB RELATIVE INDEX 0.4 (0.0-2.9); CREATINE KINASE MB 4.2 ng/mL (0-3.6)
[2023-10-19 15:37] VITALS: BP_SYST 124; PULSE 71; RESP 16; TEMP 97.6; O2SAT 96
[2023-10-19 20:10] VITALS: BP_SYST 118; PULSE 75; RESP 16; TEMP 98.9; O2SAT 96
[2023-10-20 01:02] VITALS: BP_SYST 126; PULSE 69; RESP 16; TEMP 97.7; O2SAT 98
[2023-10-20 06:09] LABS: HEMATOCRIT 23.4 % (36-54); MEAN CORPUSCULAR HEMOGLOBIN 32 pg (27-31); MEAN CORPUSCULAR HGB CONC 34 % (32-36); MEAN CORPUSCULAR VOLUME 94 fL (79.0-98.0); PLATELET COUNT (AUTO) 227 K/uL (130-430); RED BLOOD CELL COUNT(AUTO) 2.48 MIL/uL (4.2-6.2); RED CELL DISTRIBUTION WIDTH 13.6 % (9.0-15.0); WHITE BLOOD COUNT (AUTO) 6.2 K/uL (4.8-10.8)
[2023-10-20 06:42] LABS: ALANINE AMINOTRANSFERASE 109 U/L (12-78); ALBUMIN 1.8 g/dL (3.4-4.8); ANION GAP 10 (5-15); ASPARTATE AMINOTRANSFERASE 169 U/L (10-37); CALCIUM 7.6 mg/dL (8.4-11.0); CARBON DIOXIDE 20 mmol/L (23-29); CHLORIDE 109 mmol/L (98-107); CREATININE 2.01 mg/dL (0.55-1.30); GLUCOSE 109 mg/dL (74-106); PHOSPHORUS 2.6 mg/dL (2.7-4.5); POTASSIUM 3.9 mmol/L (3.5-5.1); SODIUM SERUM 139 mmol/L (136-145); TOTAL BILIRUBIN 0.2 mg/dL (0.0-1.0); TOTAL PROTEIN, SERUM 5.3 g/dL (6.4-8.3); UREA NITROGEN, BLOOD 59 mg/dL (8-21)
[2023-10-20 08:00] VITALS: BP_SYST 139; PULSE 71; RESP 18; TEMP 97.9; O2SAT 98
[2023-10-20 08:21] LABS: ATYPICAL LYMPHOCYTES % 2 % (0-0); BAND % (MANUAL) 12 % (0-6); BASOPHILS % (MANUAL) 0 % (0-2); EOSINOPHILS % (MANUAL) 2 % (0-7); LYMPHOCYTES % (MANUAL) 7 % (20-46); METAMYELOCYTES % 4 % (0-0); MONOCYTES % (MANUAL) 5 % (0-11)
[2023-10-20 08:22] LABS: PLATELET ESTIMATE ADEQUATE (ADEQUATE)
[2023-10-20 09:00] VITALS: O2SAT 98
[2023-10-20 10:38] LABS: CKMB RELATIVE INDEX 0.6 (0.0-2.9); CREATINE KINASE MB 3.3 ng/mL (0-3.6)
[2023-10-20 11:15] VITALS: BP_SYST 151; PULSE 70; RESP 16; TEMP 97.4; O2SAT 95
[2023-10-20 13:30] LABS: BASOPHILS % (AUTO) 0.7 % (0.0-2.0); EOSINOPHILS # (AUTO) 0.1 K/uL (0.0-0.4); HEMATOCRIT 25.1 % (36-54); HEMOGLOBIN 8.5 g/dL (14.0-18.0); LYMPHOCYTES # (AUTO) 0.8 K/uL (1.0-5.5); LYMPHOCYTES % (AUTO) 12.4 % (20.5-51.5); MEAN CORPUSCULAR HEMOGLOBIN 32 pg (27-31); MEAN CORPUSCULAR HGB CONC 34 % (32-36); MEAN CORPUSCULAR VOLUME 95 fL (79.0-98.0); MONOCYTES # (AUTO) 0.4 K/uL (0.0-1.0); MONOCYTES % (AUTO) 7.2 % (1.7-9.3); NEUTROPHILS # (AUTO) 4.9 K/uL (1.8-7.7); PLATELET COUNT (AUTO) 236 K/uL (130-430); RED BLOOD CELL COUNT(AUTO) 2.66 MIL/uL (4.2-6.2); RED CELL DISTRIBUTION WIDTH 13.6 % (9.0-15.0); WHITE BLOOD COUNT (AUTO) 6.2 K/uL (4.8-10.8)
[2023-10-20 13:33] LABS: NEUTROPHILS % (AUTO) 78.7 % (40.0-70.0)
[2023-10-20 15:40] VITALS: BP_SYST 158; PULSE 78; RESP 16; TEMP 97.1; O2SAT 93
[2023-10-20 20:05] VITALS: BP_SYST 133; PULSE 84; RESP 16; TEMP 98; O2SAT 92
[2023-10-21 00:15] VITALS: BP_SYST 141; PULSE 77; RESP 16; TEMP 97.7; O2SAT 93
[2023-10-21 05:12] LABS: BASOPHILS % (AUTO) 0.8 % (0.0-2.0); EOSINOPHILS # (AUTO) 0.1 K/uL (0.0-0.4); EOSINOPHILS % (AUTO) 1.6 % (0.0-4.0); HEMOGLOBIN 8.2 g/dL (14.0-18.0); LYMPHOCYTES # (AUTO) 0.8 K/uL (1.0-5.5); LYMPHOCYTES % (AUTO) 13.8 % (20.5-51.5); MEAN CORPUSCULAR HEMOGLOBIN 32 pg (27-31); MEAN CORPUSCULAR HGB CONC 34 % (32-36); MEAN CORPUSCULAR VOLUME 94 fL (79.0-98.0); MONOCYTES # (AUTO) 0.5 K/uL (0.0-1.0); MONOCYTES % (AUTO) 7.8 % (1.7-9.3); NEUTROPHILS # (AUTO) 4.4 K/uL (1.8-7.7); PLATELET COUNT (AUTO) 268 K/uL (130-430); RED BLOOD CELL COUNT(AUTO) 2.56 MIL/uL (4.2-6.2); RED CELL DISTRIBUTION WIDTH 13.6 % (9.0-15.0); WHITE BLOOD COUNT (AUTO) 5.8 K/uL (4.8-10.8)
[2023-10-21 05:16] LABS: ERYTHROCYTE SEDIMENTATION RATE 35 MM/HR (0-15)
[2023-10-21 05:30] LABS: INR 1.2 (0.80-1.20); PROTHROMBIN TIME 12.2 SECS (9.5-12.5)
[2023-10-21 06:02] LABS: ALANINE AMINOTRANSFERASE 108 U/L (12-78); ALBUMIN 1.7 g/dL (3.4-4.8); ANION GAP 11 (5-15); ASPARTATE AMINOTRANSFERASE 170 U/L (10-37); BILIRUBIN,DIRECT 0.1 mg/dL (0.0-0.3); CALCIUM 7.9 mg/dL (8.4-11.0); CARBON DIOXIDE 19 mmol/L (23-29); CHLORIDE 111 mmol/L (98-107); GLUCOSE 111 mg/dL (74-106); PHOSPHORUS 2.4 mg/dL (2.7-4.5); POTASSIUM 3.6 mmol/L (3.5-5.1); SODIUM SERUM 141 mmol/L (136-145); TOTAL BILIRUBIN 0.2 mg/dL (0.0-1.0); TOTAL PROTEIN, SERUM 5.4 g/dL (6.4-8.3); UREA NITROGEN, BLOOD 46 mg/dL (8-21)
[2023-10-21 08:00] VITALS: BP_SYST 150; PULSE 86; RESP 19; TEMP 97.5; O2SAT 95
[2023-10-21 08:07] LABS: HEPATITIS C VIRUS AB Non Reactive (Non Reactive)
[2023-10-21 09:00] VITALS: O2SAT 94
[2023-10-21] MEDS: POLYETHYLENE GLYCOL 3350, 17 GM/ POWD.PACK PO SCH (09:11)
[2023-10-21 11:07] LABS: HEPATITIS A AB, IgM Negative (Negative); HEPATITIS B CORE AB, IgM Negative (Negative); HEPATITIS B SURFACE AG Negative (Negative)
[2023-10-21 11:16] VITALS: BP_SYST 153; PULSE 76; RESP 16; TEMP 97.5; O2SAT 93
[2023-10-21] MEDS: NA PHOS 15 MM in NS 250 ML IV ONE (13:22)
[2023-10-21 15:08] VITALS: BP_SYST 145; PULSE 69; RESP 16; TEMP 97.8; O2SAT 96
[2023-10-21] MEDS: BISACODYL 5 MG TABLET.DR (DULCOLAX) PO ONE (17:00)
[2023-10-21] MEDS: LATANOPROST 2.5 ML DROPS (XALATAN) OP SCH (19:03)
[2023-10-21] MEDS: GOLYTELY / COLYTE SOLUTION 4 LITERS PO ONE (19:03)
[2023-10-21 20:00] VITALS: BP_SYST 151; PULSE 87; RESP 20; TEMP 97.5; O2SAT 96
[2023-10-21] MEDS: ONDANSETRON HCL 4 MG/2 ML VIAL IVP PRN (22:21)
[2023-10-21] MEDS: ALBUMIN HUMAN 25% 100 ML IV SCH (23:56)
[2023-10-22 00:44] VITALS: BP_SYST 168; PULSE 100; RESP 19; TEMP 98.1; O2SAT 96
[2023-10-22 05:23] LABS: BASOPHILS % (AUTO) 0.5 % (0.0-2.0); EOSINOPHILS # (AUTO) 0.1 K/uL (0.0-0.4); EOSINOPHILS % (AUTO) 1.5 % (0.0-4.0); HEMOGLOBIN 7.2 g/dL (14.0-18.0); LYMPHOCYTES # (AUTO) 0.8 K/uL (1.0-5.5); LYMPHOCYTES % (AUTO) 15.4 % (20.5-51.5); MEAN CORPUSCULAR HEMOGLOBIN 32 pg (27-31); MEAN CORPUSCULAR HGB CONC 34 % (32-36); MEAN CORPUSCULAR VOLUME 94 fL (79.0-98.0); MONOCYTES # (AUTO) 0.4 K/uL (0.0-1.0); MONOCYTES % (AUTO) 8.1 % (1.7-9.3); NEUTROPHILS # (AUTO) 3.7 K/uL (1.8-7.7); NEUTROPHILS % (AUTO) 74.5 % (40.0-70.0); PLATELET COUNT (AUTO) 282 K/uL (130-430); RED BLOOD CELL COUNT(AUTO) 2.28 MIL/uL (4.2-6.2); RED CELL DISTRIBUTION WIDTH 13.7 % (9.0-15.0); WHITE BLOOD COUNT (AUTO) 4.9 K/uL (4.8-10.8)
[2023-10-22 05:28] LABS: ERYTHROCYTE SEDIMENTATION RATE 14 MM/HR (0-15)
[2023-10-22 05:42] LABS: INR 1.2 (0.80-1.20); PROTHROMBIN TIME 12.2 SECS (9.5-12.5)
[2023-10-22 05:53] LABS: ALANINE AMINOTRANSFERASE 100 U/L (12-78); ALBUMIN 2.5 g/dL (3.4-4.8); ANION GAP 8 (5-15); ASPARTATE AMINOTRANSFERASE 139 U/L (10-37); CALCIUM 7.8 mg/dL (8.4-11.0); CARBON DIOXIDE 23 mmol/L (23-29); CHLORIDE 114 mmol/L (98-107); CREATININE 1.39 mg/dL (0.55-1.30); GLUCOSE 117 mg/dL (74-106); PHOSPHORUS 2.9 mg/dL (2.7-4.5); POTASSIUM 3.5 mmol/L (3.5-5.1); SODIUM SERUM 145 mmol/L (136-145); TOTAL BILIRUBIN 0.3 mg/dL (0.0-1.0); TOTAL PROTEIN, SERUM 5.6 g/dL (6.4-8.3); UREA NITROGEN, BLOOD 34 mg/dL (8-21)
[2023-10-22 07:00] LABS: HEMATOCRIT 21.4 % (36-54)
[2023-10-22] MEDS: MIDAZOLAM HCL 5 MG/5 ML VIAL ONE (07:37)
[2023-10-22] MEDS: fentaNYL CITRATE/PF 100 MCG/2 ML AMP ONE (07:37)
[2023-10-22] MEDS: SIMETHICONE 40 MG/0.6 ML ML ONE (07:37)
[2023-10-22 08:00] VITALS: BP_SYST 149; PULSE 84; RESP 17; TEMP 96.8; O2SAT 97
[2023-10-22 08:01] VITALS: O2SAT 97
[2023-10-22 16:41] VITALS: BP_SYST 161; PULSE 90; RESP 18; TEMP 98.8; O2SAT 95
[2023-10-22] MEDS ORDERED: PRO40 PO (17:16)
[2023-10-22] MEDS ORDERED: POLY17PO4 PO (17:16)
[2023-10-22] MEDS ORDERED: LEVO250T73 PO (17:16)
[2023-10-22] MEDS ORDERED: DOCU-144 PO (17:16)
[2023-10-22] MEDS ORDERED: LIP20 PO (17:16)
[2023-10-22] MEDS: NACL 0.9% 1,000 ML IV SCH (17:51)
[2023-10-22 19:00] VITALS: O2SAT 98
[2023-10-22 20:00] VITALS: BP_SYST 158; PULSE 81; RESP 18; TEMP 98.4; O2SAT 97
[2023-10-23] VITALS (7 sets, daily range): BP systolic 129–157; PULSE 79–95; RESP 16–18; TEMP 97–97.4; O2SAT 95–98
[2023-10-23 05:56] LABS: BASOPHILS # (AUTO) 0.1 K/uL (0.0-0.2); BASOPHILS % (AUTO) 0.9 % (0.0-2.0); EOSINOPHILS # (AUTO) 0.1 K/uL (0.0-0.4); EOSINOPHILS % (AUTO) 1.1 % (0.0-4.0); HEMATOCRIT 23.2 % (36-54); HEMOGLOBIN 7.9 g/dL (14.0-18.0); LYMPHOCYTES % (AUTO) 14.1 % (20.5-51.5); MEAN CORPUSCULAR HEMOGLOBIN 32 pg (27-31); MEAN CORPUSCULAR HGB CONC 34 % (32-36); MEAN CORPUSCULAR VOLUME 94 fL (79.0-98.0); MONOCYTES # (AUTO) 0.3 K/uL (0.0-1.0); MONOCYTES % (AUTO) 4.8 % (1.7-9.3); NEUTROPHILS # (AUTO) 5.5 K/uL (1.8-7.7); NEUTROPHILS % (AUTO) 79.1 % (40.0-70.0); PLATELET COUNT (AUTO) 345 K/uL (130-430); RED BLOOD CELL COUNT(AUTO) 2.47 MIL/uL (4.2-6.2); RED CELL DISTRIBUTION WIDTH 13.6 % (9.0-15.0); WHITE BLOOD COUNT (AUTO) 6.9 K/uL (4.8-10.8)
[2023-10-23 06:37] LABS: INR 1.2 (0.80-1.20); PROTHROMBIN TIME 12.4 SECS (9.5-12.5)
[2023-10-23 07:12] LABS: ALANINE AMINOTRANSFERASE 98 U/L (12-78); ALBUMIN 2.4 g/dL (3.4-4.8); ANION GAP 9 (5-15); ASPARTATE AMINOTRANSFERASE 132 U/L (10-37); BILIRUBIN,DIRECT 0.1 mg/dL (0.0-0.3); CALCIUM 7.9 mg/dL (8.4-11.0); CARBON DIOXIDE 23 mmol/L (23-29); CHLORIDE 114 mmol/L (98-107); CREATININE 1.26 mg/dL (0.55-1.30); GLUCOSE 117 mg/dL (74-106); PHOSPHORUS 2.3 mg/dL (2.7-4.5); POTASSIUM 3.5 mmol/L (3.5-5.1); SODIUM SERUM 146 mmol/L (136-145); TOTAL BILIRUBIN 0.3 mg/dL (0.0-1.0); TOTAL PROTEIN, SERUM 5.5 g/dL (6.4-8.3); UREA NITROGEN, BLOOD 25 mg/dL (8-21)
[2023-10-23 07:35] LABS: ERYTHROCYTE SEDIMENTATION RATE 20 MM/HR (0-15)
== END 2023-10-23 17:30 | DRG 853 ==
LOC: SED 15:58 → STU 19:40
PROVIDERS: ADMIT Preventive Medicine Preventive Medicine/Occupational Environmental Medicine; ATTEND Preventive Medicine Preventive Medicine/Occupational Environmental Medicine
PROC: 30233N1 Transfusion of Nonautologous Red Blood Cells into Peripheral Vein, Percutaneous Approach (ICD-10-PCS; principal; 2023-10-18)
PROC: 0DB68ZX Excision of Stomach, Via Natural or Artificial Opening Endoscopic, Diagnostic (ICD-10-PCS; 2023-10-22)
PROC: 0DB98ZX Excision of Duodenum, Via Natural or Artificial Opening Endoscopic, Diagnostic (ICD-10-PCS; 2023-10-22)
PROC: 0DBC8ZZ Excision of Ileocecal Valve, Via Natural or Artificial Opening Endoscopic (ICD-10-PCS; 2023-10-22 11:45)
DX: A41.9 Sepsis, unspecified organism (principal); E43 Unspecified severe protein-calorie malnutrition; K29.71 Gastritis, unspecified, with bleeding; J18.9 Pneumonia, unspecified organism; G93.41 Metabolic encephalopathy; I21.4 Non-ST elevation (NSTEMI) myocardial infarction; K57.31 Diverticulosis of large intestine without perforation or abscess with bleeding; N17.9 Acute kidney failure, unspecified; M62.82 Rhabdomyolysis; D63.1 Anemia in chronic kidney disease; E83.51 Hypocalcemia; E03.9 Hypothyroidism, unspecified; E78.5 Hyperlipidemia, unspecified; E11.65 Type 2 diabetes mellitus with hyperglycemia; E11.22 Type 2 diabetes mellitus with diabetic chronic kidney disease; E83.39 Other disorders of phosphorus metabolism; E88.09 Other disorders of plasma-protein metabolism, not elsewhere classified; K63.5 Polyp of colon; D12.0 Benign neoplasm of cecum; I12.9 Hypertensive chronic kidney disease with stage 1 through stage 4 chronic kidney disease, or unspecified chronic kidney disease; K64.8 Other hemorrhoids; E11.40 Type 2 diabetes mellitus with diabetic neuropathy, unspecified; N40.0 Benign prostatic hyperplasia without lower urinary tract symptoms; N18.30 Chronic kidney disease, stage 3 unspecified; Z79.01 Long term (current) use of anticoagulants; Z79.899 Other long term (current) drug therapy; Z68.29 Body mass index [BMI] 29.0-29.9, adult
CPT/HCPCS: 36415; 43239; 45385; 70450-TC; 70551; 71045; 72125-TC; 76700; 76770; 78226; 80048; 80053; 80074; 80076; 81000; 81001; 81015; 82272; 82550; 82553; 82570; 82948; 83010; 83540; 83550; 83605; 83735; 84100; 84302; 84484; 85007; 85025; 85027; 85044; 85610; 85651; 85730; 86886; 86900; 86901; 86920; 87040; 87081; 87086; 88305; 88312; 88313; 93005; 93306; 93971; 95816; 97110-GP; 97530-GP; 99291; A9537; G0378; J0610; J0696; J1644; J1815; J2250; J2405; J3010; J7050; P9021